=== PATIENT | female | born 1970 | race Caucasian/White ===

== ENCOUNTER → 2016-03-22 | Outpatient (CLI) | payer OTHER ==
--- NOTE | 2016-03-23 08:29 | DX ---
DEXA Bone Densitometry Technique: DEXA scan was performed on VO[employer] Discovery W Bone Densitometer Indication: Osteoporosis Comparator Study: December 29, 2013 Results: Lumbar Spine BMD: 0.782 T-score: -2.4 Prior BMD: 0.760 % change: 2.9% Total Hip (Right) BMD: 0.589 T-score: -2.9 Femoral Neck (Right) BMD: 0.543 T-score: -2.8 Total Hip (Left) BMD: 0.617 T-score: -2.7 Prior BMD: 0.638 % change: -3.4% Femoral Neck (Left) BMD: 0.5669 T-score: -2.5 CONCLUSION: Osteoporosis ADDITIONAL COMMENTS: In comparison to the previous study from December 2013, there is been an increase in bone mineral den sity of the lumbar spine, and a decrease in bone mineral density of the total left hip. However the s can types were dissimilar. This patient meets [employer]opor[employer] guidelines for further management and treatment o f osteoporosis. By FRAX calculation, the estimated 10 year probability of any major osteoporotic fracture is 9.3%, an d the estimated 10 year probability of hip fracture is 3.1%. Consider repeating the study in 2 years or as clinically indicated . NOTE: The risk of osteoporotic fractures increases approximately twofold for each 1.0 SD decrease in T-score. The T-score represents the standard deviations from a young normal, same sex, reference po pulation. Low bone density is not the only risk factor for fracture. Clinical factors to consider include fall risk, previous osteoporotic fractures, family history of fractures, smoking, and low body weight. Patients who have an unexpectedly low BMD may need to be evaluated for secondary causes of low bone m ineral density. In comparing the present study to a prior study, lack of a significant increase or decrease in BMD ma y signify efficacy of the patient's present treatment. Bone mineral density measurements performed with densitometers produced by different manufacturers ar e not comparable. For the most reproducible BMD measurement, subsequent exams should be performed on the same densitometer.
== END ==
LOC: BMCIMAGING 15:24
PROVIDERS: ATTEND Internal Medicine Endocrinology, Diabetes & Metabolism
DX: Z13.820 Encounter for screening for osteoporosis (principal); M81.0 Age-related osteoporosis without current pathological fracture